=== PATIENT | male | born 1985 | race Caucasian/White ===

== ENCOUNTER 2017-12-24 22:31 | Emergency (ER) | payer OTHER ==
[2017-12-24 22:36] VITALS: BP 148/96; PULSE 100; RESP 18; TEMP 98.5
--- NOTE | 2017-12-24 23:12 | ED ---
Skin/Abscess/FB HPI - General Source: patient Mode of arrival: ambulatory Limitations: no limitations <Shakila Anaya - Last Filed: 12/25/17 04:45> <Helene Mejia - Last Filed: 12/27/17 19:10> - General Chief complaint: Skin/Abscess/Foreign Body Stated complaint: parasite under skin Time Seen by Provider: 12/24/17 22:55 - History of Present Illness Initial comments: 32-year-old male patient presents to the emergency department today for evaluation of an odd sensation to the skin on his back. Patient states it feels like a "wiggling" sensation. Patient is concerned that he may have a parasite. Patient did travel to the [facility] in February, states that symptoms just started 1 week ago. Patient denies any itching or lesions. Denies any fevers or chills. Patient denies any recent rash, fever, chills, shortness breath, chest pain, abdominal pain, nausea, vomiting, diarrhea, constipation, back pain, numbness, tingling, dizziness, weakness, hematuria, dysuria, urinary urgency, urinary frequency, headache, visual changes, or any other complaints. Patient denies any mental health history. Denies any hallucinations. (Shakila Anaya) - Related Data Previous Rx's Medication Instructions Recorded Albendazole [Albenza] 200 mg PO ONCE #2 tablet 12/24/17 Permethrin 5% Cream [Elimite] 1 applic TOPICAL ONCE #1 cream..g. 12/24/17 Allergies Allergy/AdvReac Type Severity Reaction Status Date / Time amoxicillin [From Augmentin] Allergy Unknown Verified 12/24/17 22:35 Childhood clavulanic acid Allergy Unknown Verified 12/24/17 22:35 [From Augmentin] Childhood Review of Systems ROS Other: All systems not noted in ROS Statement are negative. <Shakila Anaya - Last Filed: 12/25/17 04:45> ROS Other: All systems not noted in ROS Statement are negative. <Helene Mejia - Last Filed: 12/27/17 19:10> ROS Statement: Those systems with pertinent positive or pertinent negative responses have been documented in the HPI. Past Medical History Past Medical History: No Reported History History of Any Multi-Drug Resistant Organisms: None Reported Past Surgical History: No Surgical Hx Reported Past Psychological History: No Psychological Hx Reported Smoking Status: Current every day smoker Past Alcohol Use History: None Reported Past Drug Use History: None Reported <Shakila Anaya - Last Filed: 12/25/17 04:45> General Exam Limitations: no limitations General appearance: alert, in no apparent distress, other (This is a well- developed, well-nourished adult male patient in no acute distress. Vital signs upon presentation are temperature 98.5F, pulse 100, respirations 18, blood pressure 148/96, pulse ox 97% on room air.) Eye exam: Present: normal appearance, PERRL, EOMI. Absent: scleral icterus, conjunctival injection, periorbital swelling ENT exam: Present: normal exam, normal oropharynx, mucous membranes moist Neck exam: Present: normal inspection. Absent: tenderness, meningismus, lymphadenopathy Respiratory exam: Present: normal lung sounds bilaterally. Absent: respiratory distress, wheezes, rales, rhonchi, stridor Cardiovascular Exam: Present: regular rate, normal rhythm, normal heart sounds. Absent: systolic murmur, diastolic murmur, rubs, gallop, clicks GI/Abdominal exam: Present: soft, normal bowel sounds. Absent: distended, tenderness, guarding, rebound, rigid Back exam: Present: normal inspection Neurological exam: Present: alert, oriented X3, CN II-XII intact Psychiatric exam: Present: normal affect, normal mood Skin exam: Present: warm, dry, intact, normal color. Absent: rash <Shakila Anaya - Last Filed: 12/25/17 04:45> Vital Signs 12/24/17 22:33 Temperature 98.5 F Pulse Rate 100 Respiratory 18 Rate Blood Pressure 148/96 O2 Sat by Pulse 97 Oximetry - Medical Decision Making 32-year-old male patient presents the emergency department today for evaluation of an odd sensation to the skin on his back. Physical examination is unremarkable. Patient is concerned he has a parasite. Patient will be discharged home. He will be given a prescription for albendazole and elemite. He is instructed to follow up with his primary care physician for a recheck in 1 -2 days. Return parameters are discussed in detail. He verbalizes understanding and agrees with this plan. (Shakila Anaya) Disposition Is patient prescribed a controlled substance at d/c from ED?: No Time of Disposition: 23:11 <Shakila Anaya M - Last Filed: 12/25/17 04:45> <Helene Mejia P - Last Filed: 12/27/17 19:10> Clinical Impression: Muscle twitch Disposition: HOME SELF-CARE Condition: Good Instructions: Muscle Spasm (ED) Additional Instructions: Take medication as directed. Follow-up with your primary care physician for recheck in 1-2 days. Return here immediately for any new, worsening, or concerning symptoms. Prescriptions: Albendazole [Albenza] 200 mg PO ONCE #2 tablet Permethrin 5% Cream [Elimite] 1 applic TOPICAL ONCE #1 cream..g. Referrals: Bacilio Shore MD [Primary Care Provider] - 1-2 days
== END 2017-12-24 23:26 | disposition home or self-care (01) ==
LOC: EC 22:31
DX: M62.838 Other muscle spasm (principal); F17.200 Nicotine dependence, unspecified, uncomplicated; Z88.0 Allergy status to penicillin
CPT/HCPCS: 99282

== ENCOUNTER 2022-03-17 12:36 | Emergency (ER) | payer OTHER ==
[2022-03-17 13:38] VITALS: BP 130/83; PULSE 89; RESP 16; TEMP 97
[2022-03-17] MEDS ORDERED: LIDOCAINE 1% INJ 10MG/ML (30 ML VIAL-PF) SQ ONE (13:46)
--- NOTE | 2022-03-17 14:13 | ED ---
Wound/Laceration HPI - General Chief Complaint: Wound/Laceration Stated Complaint: rt leg lac Time Seen by Provider: 03/17/22 13:42 Source: patient Mode of arrival: ambulatory Limitations: no limitations - History of Present Illness Initial Comments: Patient is a 36-year-old male presenting to the emergency room with a laceration to his right merchant along with some abrasions to his right hand which he ensued while climbing over a fence in the process of chasing his dog earlier this afternoon. He denies any injury to any other extremity. He denies hitting his head at the time of the fall. He denies any concern for foreign body in the wound. He denies any range of motion impairment numbness or tingling. He reports that his tetanus vaccination is up to date. He denies any significant past medical history and does not take any medications on a regular basis. - Related Data Previous Rx's Medication Instructions Recorded Albendazole [Albenza] 200 mg PO ONCE #2 tablet 12/24/17 Permethrin 5% Cream [Elimite] 1 applic TOPICAL ONCE #1 cream..g. 12/24/17 Allergies Allergy/AdvReac Type Severity Reaction Status Date / Time amoxicillin [From Augmentin] Allergy Unknown Verified 12/24/17 22:35 Childhood clavulanic acid Allergy Unknown Verified 12/24/17 22:35 [From Augmentin] Childhood Review of Systems ROS Statement: Those systems with pertinent positive or pertinent negative responses have been documented in the HPI. ROS Other: All systems not noted in ROS Statement are negative. Past Medical History Past Medical History: No Reported History History of Any Multi-Drug Resistant Organisms: None Reported Past Surgical History: No Surgical Hx Reported Past Psychological History: No Psychological Hx Reported Past Alcohol Use History: None Reported Past Drug Use History: None Reported General Exam Limitations: no limitations General appearance: alert, in no apparent distress Head exam: Present: atraumatic, normocephalic, normal inspection Eye exam: Present: normal appearance, PERRL, EOMI. Absent: scleral icterus, conjunctival injection, periorbital swelling ENT exam: Present: normal exam, mucous membranes moist Neck exam: Present: normal inspection, full ROM Respiratory exam: Absent: respiratory distress, accessory muscle use Cardiovascular Exam: Present: regular rate GI/Abdominal exam: Absent: distended Right Hand Wrist exam: Present: abrasion Right Lower Leg exam: Present: abrasion, laceration (Puncture wound laceration right merchant 1.5 cm in length deepest to approximately half a centimeter) Back exam: Present: normal inspection, full ROM Neurological exam: Present: alert, oriented X3, CN II-XII intact Psychiatric exam: Present: normal affect, normal mood Skin exam: Present: abrasion (Right hand and right chin) Course Vital Signs 03/17/22 13:35 Temperature 97 F L Pulse Rate 89 Respiratory 16 Rate Blood Pressure 130/83 O2 Sat by Pulse 98 Oximetry Procedures - Laceration Laceration #1 Consent Obtained: verbal consent Indication: laceration Site: lower extremity Size (cm): 1 (1.5) Description: linear Depth: simple, single layer Anesthetic Used: lidocaine 1% Anesthesia Technique: local infiltration Pre-repair: wound explored, irrigated extensively Type of Sutures: nylon Size of Sutures: 4-0 Number of Sutures: 3 Technique: simple, interrupted Patient Tolerated Procedure: well, no complications Medical Decision Making - Medical Decision Making 36-year-old male presents the emergency room with abrasion and puncture wound laceration to right merchant after falling uneventful chasing dog. No indication for diagnostic imaging or laboratory studies. Denies analgesic need. Tetanus up-to-date. Will plan for irrigation and suture closure after anesthetic administered. Tolerated suture closure of laceration well without complication. Wound care discussed. Will discharge home in stable condition with dressings intact to relation to right merchant. Advise follow-up for suture removal. Case discussed with Dr. Ford. Disposition Clinical Impression: Laceration Disposition: HOME SELF-CARE Condition: Stable Instructions (If sedation given, give patient instructions): Care For Your Stitches (ED), Laceration (ED) Additional Instructions: Please keep wound clean and dry. Monitor for signs and symptoms of infection and seek medical attention as appropriate if symptoms occur. Please follow-up with your primary care provider. May return to the emergency room or follow-up with your primary care provider for suture removal in 7-10 days. Please return to the Emergency Department if symptoms worsen or any other concerns. Is patient prescribed a controlled substance at d/c from ED?: No Referrals: Marisela Saucedo MD [Primary Care Provider] - 1-2 days Time of Disposition: 14:12
== END 2022-03-17 14:22 | disposition home or self-care (01) ==
LOC: EC 12:36
DX: S81.811A Laceration without foreign body, right lower leg, initial encounter (principal); Z88.0 Allergy status to penicillin; Z88.1 Allergy status to other antibiotic agents; W17.89XA Other fall from one level to another, initial encounter; Y93.39 Activity, other involving climbing, rappelling and jumping off
CPT/HCPCS: 99282; 12001; J2001